=== PATIENT | female | born 1995 | race African-American/Black ===

== ENCOUNTER 2017-12-10 20:47 | Emergency (ER) | payer OTHER ==
[2017-12-10 21:41] LABS: URINE HCG POC HCG POSITIVE (Negative)
[2017-12-10 21:59] LABS: BILIRUBIN,URINE NEGATIVE (NEG); CLARITY,URINE CLEAR; COLOR,URINE YELLOW; GLUCOSE,URINE NEGATIVE (NEG); NITRITE,URINE NEGATIVE (NEG); PROTEIN,URINE 30 mg/dL (NEG-TRACE)
[2017-12-10] MEDS: IV NORMAL SALINE 1000ML BAG 1,000 ML IV (22:00)
[2017-12-10 22:05] LABS: BACTERIA,URINE 0 /HPF (0-FEW); RBC,URINE 0 /HPF (0-2); SQUAMOUS EPITHELIAL CELL,UR MANY /LPF; WBC,URINE 20-40 /HPF (0-4)
[2017-12-10] MEDS: NITROFURANTOIN MONOHYD/M-CRYST 100 MG CAPSULE. PO (23:10)
== END 2017-12-10 23:17 | disposition home or self-care (01) ==
LOC: ER 20:47
DX: O23.42 Unspecified infection of urinary tract in pregnancy, second trimester (principal); Z3A.18 18 weeks gestation of pregnancy
CPT/HCPCS: 81001; 81025; 87491; 87591; 99284; 99285